=== PATIENT | male | born 1960 | race Caucasian/White ===

== ENCOUNTER 2018-02-06 15:38 | Emergency (ER) | payer BC ==
[~2018-02-06] VITALS: Ht 162.6 cm; Wt 77.3 kg
[2018-02-06 17:21] LABS: HEMATOCRIT 43.1 % (38.0-50.0); HEMOGLOBIN 15.2 G/DL (12.5-16.6); MCH 30.8 PG (29.0-34.0); MCHC 35.3 G/DL (30.0-36.0); MCV 87.4 FL (86-99); PLATELET COUNT 347 K/uL (156-360); RBC DIS.WIDTH-CV 12.1 % (11.8-14.6); RBC DIS.WIDTH-SD 39.2 % (39-53); RED BLOOD COUNT 4.93 M/uL (4.00-5.50); WHITE BLOOD COUNT 9.1 K/uL (4.1-10.2)
[2018-02-06 17:30] LABS: CHLORIDE 104 mEq/L (99-109); POTASSIUM 4.2 mEq/L (3.7-5.4); SODIUM 142 mEq/L (136-147)
[2018-02-06 17:31] LABS: GLUCOSE 92 mg/dL (70-99)
[2018-02-06 17:35] LABS: GFR ESTIMATE (CALCULATED) > 59 mL/min/ (58.99-99999)
[2018-02-06 17:36] LABS: UREA NITROGEN (BUN) 14 mg/dL (9-23)
[2018-02-06 23:33] VITALS: BP 130/84
== END 2018-02-06 23:42 | disposition home or self-care (01) ==
LOC: EME 15:38 → EXP 15:38
PROVIDERS: Physician Assistant
DX: K62.89 Other specified diseases of anus and rectum (principal); K59.00 Constipation, unspecified; F17.200 Nicotine dependence, unspecified, uncomplicated
CPT/HCPCS: 74177; 80048; 85027; 99281; 99285; J2405; J3010

== ENCOUNTER 2018-03-01 09:05 | Day surgery (SDC) | payer BC ==
[~2018-03-01] VITALS: Ht 162.6 cm; Wt 71.2 kg
[2018-03-01 09:47] VITALS: BP 129/83
[2018-03-01 09:56] LABS: PTT 33.2 SEC (25-37)
[2018-03-01] MEDS ORDERED: MOTRIN600 MG PO (13:57)
[2018-03-01 14:45] VITALS: BP 131/96
[2018-03-01 15:54] VITALS: BP 124/75
== END 2018-03-01 16:05 | disposition home or self-care (01) ==
LOC: SDC 09:05
PROVIDERS: Thoracic Surgery (Cardiothoracic Vascular Surgery)
DX: K64.8 Other hemorrhoids (principal); Z87.19 Personal history of other diseases of the digestive system; Z90.49 Acquired absence of other specified parts of digestive tract; M19.042 Primary osteoarthritis, left hand; M19.041 Primary osteoarthritis, right hand; Z82.49 Family history of ischemic heart disease and other diseases of the circulatory system; Z83.3 Family history of diabetes mellitus; Z83.79 Family history of other diseases of the digestive system; F17.210 Nicotine dependence, cigarettes, uncomplicated
CPT/HCPCS: 85610; 85730; J0690; J1100; J1170; J2250; J2405; J3010